=== PATIENT | female | born 1990 | race Caucasian/White ===

== ENCOUNTER 2018-04-28 11:01 | Inpatient (IN) | payer OTHER ==
[2018-04-28] MEDS ORDERED: LORazepam 2 MG/ML INJ IVP ONE ×5 (12:33→16:02)
[2018-04-28] MEDS ORDERED: NS 1,000 ML IV ONE (12:33)
--- NOTE | 2018-04-28 12:37 | EDPHY ---
H & P Stated Complaint: Hallucinations, increased shakes, possible withdrawel from ETOH - Personal History LMP (Females 10-55): Unknown Current Tetanus Diphtheria and Acellular Pertussis (TDAP): Yes Tetanus Vaccine Date: within 10 yrs - Medical/Surgical History Hx Asthma: No Hx Chronic Respiratory Disease: No Hx Diabetes: No Hx Cardiac Disease: No Hx Renal Disease: No Hx Cirrhosis: No Hx Alcoholism: Yes Hx HIV/AIDS: No Hx Splenectomy or Spleen Trauma: No Other PMH: abd surg. ETOH - Social History Smoking Status: Never smoked <Rocael Matthews Sweetie - Last Filed: 04/29/18 06:44> <Jeramie Salinas - Last Filed: 04/29/18 12:37> Time Seen by Provider: 04/28/18 12:26 HPI/ROS: CHIEF COMPLAINT: Anxiety, shaking, possible alcohol withdrawal HISTORY OF PRESENT ILLNESS: 27-year-old female history of heavy daily alcohol use, history of anxiety, last drink of alcohol 2.5 days ago, has been experiencing tremor, hallucination which developed in the past 24 hr. No suicidal or homicidal ideation. The audio hallucinations are "repeating words" . No seizure. No polysubstance abuse. No trauma. No fever or chills. No malaise. REVIEW OF SYSTEMS: A ten point review of systems was performed and is negative with the exception of the items mentioned in the HPI PAST MEDICAL & SURGICAL HISTORY: Alcoholism. Anxiety. SOCIAL HISTORY: Positive for heavy daily alcohol use, last drink of alcohol 2.5 days ago . Works for [employer]. PHYSICAL EXAM (Prior to examination, patient consented to physical exam, hands were washed and my usual and customary physical exam procedures followed) 1) GENERAL: Well-developed, well-nourished, alert and oriented. Shakes my hand , smiling, tremulous, appears anxious 2) HEAD: Normocephalic, atraumatic 3) HEENT: Pupils equal, round, reactive to light bilaterally. Sclera anicteric. Nasopharynx, oropharynx, clear, no lesions. No trauma or laceration. 4) NECK: Full range of motion, no meningeal signs. 5) LUNGS: Clear auscultation bilaterally, no wheezes, no rhonchi, no retractions. 6) HEART: Regular rate and rhythm, no murmur, no heave, no gallop. 7) ABDOMEN: No guarding, no rebound, no focal tenderness, negative McBurney's, negative Johnson's, negative Rovsing's, negative peritoneal sign], 8) MUSCULOSKELETAL: Moving all extremities, no focal areas of tenderness, no obvious trauma. No peripheral edema or discoloration. 9) BACK: No CVA tenderness, no midline vertebral tenderness, no fluctuance, no step-off, no obvious trauma, no visual or palpable abnormality. 10) SKIN: No rash, no petechiae. 11) Psychiatric: Patient is oriented X 3, there is no agitation. Appears anxious. She is tremulous. Answering questions appropriately. 12) NEURO: Awake, alert, and oriented to person, place and time. Answers questions appropriately. There were no obvious focal neurologic abnormalities. Normal steady gait. Upper and lower extremities bilaterally with strength 5 / 5, reflexes 2+. DIFFERENTIAL DIAGNOSIS: In no particular include but limited to acute alcohol withdrawal, alcoholic hallucinosis, hepatic encephalopathy, delirium tremens (Rocael Matthews) Constitutional: Initial Vital Signs Temperature (C) 36.6 C 04/28/18 11:05 Heart Rate 108 H 04/28/18 11:05 Respiratory Rate 20 04/28/18 11:05 Blood Pressure 148/95 H 04/28/18 11:05 O2 Sat (%) 98 04/28/18 11:05 O2 Delivery Mode Room Air Allergies/Adverse Reactions: No Known Allergies Allergy (Unverified 11/12/15 15:34) Home Medications: Medication Instructions Recorded ARIPiprazole [Abilify 2 mg (*)] 2 mg PO DAILY 04/28/18 Escitalopram Oxalate [Lexapro] 20 mg PO DAILY 04/28/18 QUEtiapine FUMARATE [Seroquel 50 50 mg PO DAILY 04/28/18 mg (*)] clonazePAM [Klonopin (*)] 0.5 mg PO DAILY 04/28/18 Medical Decision Making <Rocael Matthews - Last Filed: 04/29/18 06:44> Consult/Admit Bed Type: [place] [id number] <Jeramie Salinas - Last Filed: 04/29/18 12:37> ED Course/Re-evaluation: 12:36 p.m.: Will check laboratory studies , administer IV benzodiazepine and re -evaluate. [facility] she feels better from the emergency department. I do not think she meets criteria for an M1 hold at this time. Doubt DTs at this time 1:54 p.m.: Re-evaluation. She remains tremulous. She has received total 4 mg of IV Ativan. I do not think that discharge to the [facility] is appropriate given her current response to benzodiazepines. Will administer 2 further mg of IV Ativan and plan on admission to the ICU, initiate precedex drip. Patient also seen and examined by secondary supervising physician Dr Jeramie Salinas in ER. (Rocael Matthews) Other Provider: PHYSICIAN DOCUMENTATION: The patient was evaluated and managed by the Physician Manager Employment and myself. I have reviewed the chart and agree with the findings and plan of care as documented. In addition, I examined the patient myself at 1326. History confirmed as no alcohol for a couple days, very tremulous. Physical findings as follows: Patient is alert and answer questions appropriately for me. She is a ambulatory and does not have truncal ataxia but is very tremulous. Additional 2 mg IV Ativan ordered, the clinical picture is consistent with alcohol withdrawal. 1558: Patient is continuing to receive IV Ativan boluses on Precedex drip and still tremulous and appears confused at this time. On admission, on precedex drip, calmer. Critical care time spent by me, Dr. Salinas, exclusively with the care of this patient was 30 minutes, exclusive of PA or INTERNIST MEDICAL DOCTOR MD time and exclusive of separate procedures. The organ system at risk was neurologic and I ordered multiple doses of IV Ativan, serial exams, IV precedex drip to stabilize the patient and prevent worsening of the patient's condition. I am the secondary supervising physician. (Jeramie Salinas) - Data Points Laboratory Results: Laboratory Results 04/28/18 12:55 04/28/18 12:55 Medications Given: Folic Acid (Folic Acid) 1 mg PO DAILY JIMMY Stop: 10/26/18 08:59 Last Admin: 04/29/18 09:12 Dose: 1 mg Thiamine HCl 500 mg/ Sodium (Chloride) 105 mls @ 210 mls/hr IV DAILY JIMMY Stop: 05/02/18 08:59 Last Admin: 04/29/18 09:25 Dose: 105 mls Lorazepam (Ativan Injection) 0 mg IVP Q1H PRN; Protocol PRN Reason: Alcohol Withdrawal w/IV access Stop: 10/25/18 15:11 Last Admin: 04/29/18 09:12 Dose: 2 mg Multivitamins (Tab-A-Basil) 1 each PO DAILY JIMMY Stop: 10/26/18 08:59 Last Admin: 04/29/18 09:12 Dose: 1 each Discontinued Medications Folic Acid (Folic Acid) 1 mg PO EDNOW ONE Stop: 04/28/18 13:56 Last Admin: 04/28/18 14:07 Dose: 1 mg Sodium Chloride (Ns) 1,000 mls @ 0 mls/hr IV ONCE ONE PRN Reason: Wide Open Stop: 04/28/18 12:34 Last Admin: 04/28/18 12:52 Dose: 1,000 mls Dexmedetomidine HCl 400 mcg/ (Sodium Chloride) 104 mls @ 0 mls/hr IV CONT JIMMY; Titrate PRN Reason: Protocol Stop: 10/25/18 14:29 Last Admin: 04/28/18 14:40 Dose: 104 mls Potassium Chloride 20 meq/ (Sodium Chloride) 1,000 mls @ 100 mls/hr IV CONT JIMMY Stop: 10/25/18 15:29 Last Admin: 04/29/18 09:25 Dose: 1,000 mls Potassium Chloride (Potassium Cl 10 Meq (Premix)) 100 mls @ 100 mls/hr IV Q1H JIMMY Stop: 04/29/18 00:29 Last Admin: 04/29/18 00:52 Dose: 100 mls Dexmedetomidine/Sodium Chloride (Precedex 4 Mcg/Ml 100 Ml (Premix)) 100 mls @ 0 mls/hr IV CONT JIMMY; Titrate PRN Reason: Protocol Stop: 10/25/18 14:29 Last Admin: 04/28/18 23:45 Dose: 100 mls Potassium Chloride (Potassium Cl 10 Meq (Premix)) 100 mls @ 100 mls/hr IV Q1H JIMMY Stop: 04/29/18 11:29 Last Admin: 04/29/18 11:47 Dose: 100 mls Magnesium Sulfate (Magnesium Sulf 2 Gm (Premix)) 50 mls @ 50 mls/hr IV ONCE ONE Stop: 04/29/18 09:02 Last Admin: 04/29/18 09:13 Dose: 50 mls Lorazepam (Ativan Injection) 2 mg IVP EDNOW ONE Stop: 04/28/18 12:34 Last Admin: 04/28/18 12:53 Dose: 2 mg Lorazepam (Ativan Injection) 2 mg IVP EDNOW ONE Stop: 04/28/18 13:29 Last Admin: 04/28/18 13:37 Dose: 2 mg Lorazepam (Ativan Injection) 2 mg IVP EDNOW ONE Stop: 04/28/18 14:00 Last Admin: 04/28/18 14:13 Dose: 2 mg Lorazepam (Ativan Injection) 2 mg IVP EDNOW ONE Stop: 04/28/18 14:00 Last Admin: 04/28/18 15:16 Dose: Not Given Lorazepam (Ativan Injection) 2 mg IVP Q6HRS JIMMY Stop: 05/02/18 17:59 Last Admin: 04/29/18 05:24 Dose: 2 mg Lorazepam (Ativan Injection) 2 mg IVP ONCE ONE Stop: 04/28/18 16:03 Last Admin: 04/28/18 16:06 Dose: 2 mg Thiamine HCl (Vitamin B-1) 100 mg PO EDNOW ONE Stop: 04/28/18 13:56 Last Admin: 04/28/18 14:13 Dose: 100 mg Departure <Rocael Matthews - Last Filed: 04/29/18 06:44> <Jeramie Salinas - Last Filed: 04/29/18 12:37> - Departure Disposition: [facility] Clinical Impression: Alcohol withdrawal Qualifiers: Complication of substance-induced condition: with perceptual disturbance Qualified Code(s): F10.232 - Alcohol dependence with withdrawal with perceptual disturbance Condition: Serious
[2018-04-28] MEDS ORDERED: THIAMINE HCL 100 MG TAB PO ONE (13:55)
[2018-04-28] MEDS ORDERED: FOLIC ACID 1 MG TAB PO ONE (13:55)
[2018-04-28 14:18] LABS: CREATINE KINASE 154 IU/L (0-156)
[2018-04-28 14:29] LABS: PLATELET COUNT 78 10^3/uL (150-400)
[2018-04-28] MEDS ORDERED: DEXMEDETOMIDINE HCL 400 MCG in NS 100 ML IV SCH (14:30)
[2018-04-28] MEDS ORDERED: FLUMAZENIL 0.5 MG/5 ML MDV IVP PRN (15:12)
[2018-04-28] MEDS ORDERED: PROTOCOL MAGNESIUM 1 DOSE IV PRN (15:14)
[2018-04-28] MEDS ORDERED: PROTOCOL POTASSIUM 1 DOSE MISC PRN ×2 (15:14)
[2018-04-28] MEDS ORDERED: ACETAMINOPHEN 325 MG TAB PO PRN (15:16)
--- NOTE | 2018-04-28 15:37 | PDGENHP ---
History and Physical - Chief Complaint hallucinations - History of Present Illness 27-year-old female history of heavy daily alcohol use, history of anxiety, last drink of alcohol 2.5 days ago, has been experiencing tremor, hallucination which developed in the past 24 hr. No suicidal homicidal ideation. The audio hallucinations are "repeating words". No seizure. No polysubstance abuse. No trauma. She has a hx of seizures. She is awake but is confused. History is obtained from d/w the ED nurse as well as the medical record. Ethyl Alcohol level is less than 10 She has received a total of 8mg of Ativan A Precedex drip has been started in the E.D. Denies active pain. no seizure activity ROS: per above or unable to obtain PMHx: Alcoholism. Anxiety. Pancreatitis SOCIAL HISTORY: Positive for heavy daily alcohol use, last drink of alcohol 2.5 days ago FMHx: unable to obtain History Information - Allergies/Home Medication List Allergies/Adverse Reactions: No Known Allergies Allergy (Unverified 11/12/15 15:34) Home Medications: ARIPiprazole [Abilify 2 mg (*)] 2 mg PO DAILY 04/28/18 [Last Taken Unknown] Escitalopram Oxalate [Lexapro] 20 mg PO DAILY 04/28/18 [Last Taken Unknown] QUEtiapine FUMARATE [Seroquel 50 mg (*)] 50 mg PO DAILY 04/28/18 [Last Taken Unknown] clonazePAM [Klonopin (*)] 0.5 mg PO DAILY 04/28/18 [Last Taken Unknown] I have personally reviewed and updated: medical history, social history - Social History Smoking Status: Never smoked Review of Systems Review of Systems: ROS: 10pt was reviewed & negative except for what was stated in HPI & below Physical Exam Physical Exam: Temp Pulse Resp BP Pulse Ox 36.4 C 98 23 H 136/106 H 91 L 04/28/18 14:54 04/28/18 15:14 04/28/18 15:14 04/28/18 15:14 04/28/18 15:14 Constitutional: no apparent distress Eyes: PERRL, EOMI Ears, Nose, Mouth, Throat: moist mucous membranes Cardiovascular: regular rate and rhythym Respiratory: no respiratory distress, no rales or rhonchi Gastrointestinal: normoactive bowel sounds, soft, non-tender abdomen Skin: warm Neurologic: No AAOx3 Psychiatric: encephalopathic Lymph, Heme, Immunologic: No petechiae Lab Data & Imaging Review 04/28/18 12:55 04/28/18 12:55 WBC 3.92 10^3/uL (3.80-9.50) 04/28/18 12:55 RBC 3.98 10^6/uL (4.18-5.33) L 04/28/18 12:55 Hgb 14.3 g/dL (12.6-16.3) 04/28/18 12:55 Hct 40.5 % (38.0-47.0) 04/28/18 12:55 MCV 101.8 fL (81.5-99.8) H 04/28/18 12:55 MCH 35.9 pg (27.9-34.1) H 04/28/18 12:55 MCHC 35.3 g/dL (32.4-36.7) 04/28/18 12:55 RDW 11.4 % (11.5-15.2) L 04/28/18 12:55 Plt Count 78 10^3/uL (150-400) L 04/28/18 12:55 MPV 10.6 fL (8.7-11.7) 04/28/18 12:55 Neut % (Auto) 72.7 % (39.3-74.2) 04/28/18 12:55 Lymph % (Auto) 14.0 % (15.0-45.0) L 04/28/18 12:55 Marshall % (Auto) 11.7 % (4.5-13.0) 04/28/18 12:55 Eos % (Auto) 0.5 % (0.6-7.6) L 04/28/18 12:55 Baso % (Auto) 0.8 % (0.3-1.7) 04/28/18 12:55 Nucleat RBC Rel Count 0.0 % (0.0-0.2) 04/28/18 12:55 Absolute Neuts (auto) 2.85 10^3/uL (1.70-6.50) 04/28/18 12:55 Absolute Lymphs (auto) 0.55 10^3/uL (1.00-3.00) L 04/28/18 12:55 Absolute Monos (auto) 0.46 10^3/uL (0.30-0.80) 04/28/18 12:55 Absolute Eos (auto) 0.02 10^3/uL (0.03-0.40) L 04/28/18 12:55 Absolute Basos (auto) 0.03 10^3/uL (0.02-0.10) 04/28/18 12:55 Absolute Nucleated RBC 0.00 10^3/uL (0-0.01) 04/28/18 12:55 Immature Gran % 0.3 % (0.0-1.1) 04/28/18 12:55 Immature Gran # 0.01 10^3/uL (0.00-0.10) 04/28/18 12:55 Sodium 141 mEq/L (135-145) 04/28/18 12:55 Potassium 3.3 mEq/L (3.3-5.0) 04/28/18 12:55 Chloride 102 mEq/L (97-110) 04/28/18 12:55 Carbon Dioxide 22 mEq/l (22-31) 04/28/18 12:55 Anion Gap 17 mEq/L (8-16) H 04/28/18 12:55 BUN 10 mg/dL (7-23) 04/28/18 12:55 Creatinine 0.6 mg/dL (0.6-1.0) 04/28/18 12:55 Estimated GFR > 60 04/28/18 12:55 Glucose 111 mg/dL (70-100) H 04/28/18 12:55 Calcium 9.8 mg/dL (8.5-10.4) 04/28/18 12:55 Magnesium 1.6 mg/dL (1.6-2.3) 04/28/18 12:55 Total Bilirubin 1.6 mg/dL (0.1-1.4) H 04/28/18 12:55 Conjugated Bilirubin 0.5 mg/dL (0.0-0.5) 04/28/18 12:55 Unconjugated Bilirubin 1.1 mg/dL (0.0-1.1) 04/28/18 12:55 AST 137 IU/L (14-46) H 04/28/18 12:55 ALT 77 IU/L (9-52) H 04/28/18 12:55 Alkaline Phosphatase 89 IU/L (38-126) 04/28/18 12:55 Creatine Kinase 154 IU/L (0-156) 04/28/18 12:55 Total Protein 8.6 g/dL (6.3-8.2) H 04/28/18 12:55 Albumin 5.1 g/dL (3.5-5.0) H 04/28/18 12:55 Beta HCG, Qual NEGATIVE 04/28/18 12:55 Ethyl Alcohol < 10 mg/dL (0-10) 04/28/18 12:55 Assessment & Plan Assessment: #Acute ETOH WD #Acute Encephalopathy #Hallucinations #Chronic ETOH Plan: Admit to Step Down cont with CIWA Schedule additional Ativan Cont Precedex Check Magnesium IVF SCD's Full Code total critical care time is 45 minutes
[2018-04-28] MEDS: LORazepam 2 MG/ML INJ IVP SCH (20:15)
[2018-04-28] MEDS ORDERED: DEXMEDETOMIDINE IN 0.9 % NACL 100 ML IV SCH (21:30)
[2018-04-28] MEDS: LORazepam 2 MG/ML INJ IVP PRN (22:16)
[2018-04-28] MEDS: POTASSIUM Cl (KCl) 20 MEQ in 1/2 NS 1,000 ML IV SCH (22:34)
[2018-04-28] MEDS: POTASSIUM Cl (KCl) 100 ML IV SCH ×2 (22:34→23:45)
[2018-04-29] MEDS: POTASSIUM Cl (KCl) 100 ML IV SCH ×4 (00:52→11:47)
[2018-04-29] MEDS: LORazepam 2 MG/ML INJ IVP SCH ×2 (00:53→05:24)
[2018-04-29] MEDS: LORazepam 2 MG/ML INJ IVP PRN ×7 (03:50→20:14)
[2018-04-29 04:41] LABS: PLATELET COUNT 63 10^3/uL (150-400)
[2018-04-29] MEDS ORDERED: MAGNESIUM SULF 2 GM/WATER 50 ML IV ONE (08:03)
[2018-04-29] MEDS: FOLIC ACID 1 MG TAB PO SCH (09:12)
[2018-04-29] MEDS: MULTIVITAMINS 1 EACH TAB PO SCH (09:12)
[2018-04-29] MEDS: THIAMINE HCL 500 MG in NS 100 ML IV SCH (09:25)
[2018-04-29] MEDS: POTASSIUM Cl (KCl) 20 MEQ in 1/2 NS 1,000 ML IV SCH (09:25)
--- NOTE | 2018-04-29 09:39 | PDMN ---
Medical Necessity Medical necessity: Pt meets IP criteria per & SILVIA CCC-035 Alcohol Withdrawal w/acute encephalopathy, tremors & hallucinations; admit to Step-Down ICU; requiring IV Precedex & Ativan, IVFs & CIWA protocol; hx alcoholism & seizures
--- NOTE | 2018-04-29 10:01 | ASMTCASEMG ---
Living Arrangements What is your living Answers: With Spouse arrangement? Who do you live with? Type Of Residence What kind of residence do Answers: House you live in? Discharge Plan Comments Coordination Status Comments Notes: Patient is a 27yo female with a hx of heavy daily alcohol use and a hx of anxiety who was admitted for ETOH withdrawal, acute encephalopathy, hallucinations, and chronic Etoh abuse. PT/MANAGER OF HEALTH have been ordered. CAGE needed when patient is able. D/C plan TBD. CM will follow. Date Signed: 04/29/2018 10:01 AM Electronically Signed By:Uyen Gates LCSW
[2018-04-29] MEDS ORDERED: chlordiazePOXIDE 25 MG CAP PO SCH (13:00)
--- NOTE | 2018-04-29 14:27 | HOSPPROG ---
Hospitalist Progress Note Assessment/Plan: 27 yo female admitted to the Step down unit due to ETOH intoxication requiring Precedex and scheduled Benzo's #Acute ETOH WD #Acute Encephalopathy #Hallucinations #Chronic ETOH #Hypomagnesemia Plan: -Off Precedex -cont in step down, if better today, consider transfer to med floor -replace magnesium -Schedule Librium -Cont CIWA, Ativan -stop scheduled Ativan -Regular diet -SCD's -Full Code total critical care time is 32 mins Subjective: feeling better. CIWA scores are decreasing. tolerating a diet. Objective: Vital Signs Temp Pulse Resp BP Pulse Ox 37.0 C 125 H 18 114/89 H 97 04/29/18 11:30 04/29/18 11:30 04/29/18 11:30 04/29/18 11:30 04/29/18 11:30 Laboratory Results 04/29/18 04:08 04/29/18 04:08 04/28/18 04/29/18 04/30/18 05:59 05:59 05:59 Intake Total 2786.7 Balance 2786.7 - Physical Exam Constitutional: no apparent distress Eyes: PERRL, EOMI Ears, Nose, Mouth, Throat: moist mucous membranes, hearing normal Cardiovascular: regular rate and rhythym, No edema Respiratory: no respiratory distress, No rhonchi Gastrointestinal: normoactive bowel sounds, soft, non-tender abdomen Skin: warm Neurologic: AAOx3, other (bilateral hand tremor) Psychiatric: anxious, No not encephalopathic Lymph, Heme, Immunologic: No petechiae ICD10 Worksheet Patient Problems: Problems Problem Status Onset Alcohol withdrawal Acute
[2018-04-29] MEDS ORDERED: chlordiazePOXIDE 25 MG CAP PO ONE (15:40)
[2018-04-29] MEDS: chlordiazePOXIDE 25 MG CAP PO SCH ×2 (16:07→22:17)
--- NOTE | 2018-04-29 16:50 | GCON ---
[f rep st] CONSULTATION CRITICAL CARE CONSULTATION DATE OF CONSULTATION: 04/29/2018 HISTORY OF PRESENT ILLNESS: This is a 27-year-old female with a history of heavy alcohol use, with a history of alcohol seizures in the past, who came to the emergency department yesterday with tremor and hallucinations that developed in the last 24 hours. She said her last drink of alcohol was about 2-1/2 days prior to that. She had no seizure activity that she was aware of at this time, but was s omewhat confused. She was admitted then to the intensive care unit on the CIWA protocol, and a Prece dex drip was started in the emergency department. At the time my evaluation came around the next mor lissy, she was much clearer. Her Precedex was on 0.2. She denied any further hallucinations but did have some mild tremor at that time. REVIEW OF SYSTEMS: Otherwise negative. PAST MEDICAL HISTORY: Includes alcoholism, pancreatitis, and anxiety in the past. PAST SURGICAL HISTORY: None. SOCIAL HISTORY: She is a nonsmoker. FAMILY HISTORY: Noncontributory. MEDICATIONS: At this time, in [employer]. PHYSICAL EXAM: VITAL SIGNS: She had a blood pressure of 118/87, heart rate 84, respirations 14, oxy gen saturation 94% on room air. GENERAL: She was easily aroused from sleep, in no apparent distress and able to speak in full sentences without using accessory muscles for breathing. HEENT: Pupils e qually round and reactive to light, nonicteric and noninjected. Mucous membranes are moist, without erythema or exudate. NECK: Supple, without adenopathy or jugular vein distention. LUNGS: Breath s ounds were clear to auscultation bilaterally, without wheezes, rubs, or rales. HEART: Regular rate and rhythm, without murmurs, rubs, or gallops. ABDOMEN: Soft, nontender, nondistended, without hepa tosplenomegaly. EXTREMITIES: No clubbing, cyanosis, or edema. 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 She did appear to have occasional tremor. SKIN: Warm and dry , without evidence of rash. OBJECTIVE DATA: Includes a white count of 3.14, hematocrit of 34, which is down from 40 when she arr ived. Platelets were 63, down from 78. Basic metabolic panel was essentially normal, though she had a bicarb of 20. Her BUN and creatinine were normal. Her LFTs yesterday showed an AST of 137, ALT o f 77. Alcohol level was undetectable. ASSESSMENT/PLAN: 1. Alcohol withdrawal. She appears to be having withdrawal symptoms but is quite mild at this time. I would discontinue her Precedex and change her to p.r.n. Librium and monitor her for any symptoms that should get worse. 2. Alcoholic hepatitis. I think her discriminant function is normal. I do not think that steroids are indicated at this time. Going to simply recheck her LFTs in the near future. 3. Thrombocytopenia. This is likely chronic for her related to alcohol consumption, though in 2016, her platelets were 208, although I am uncertain of the circumstances at that time. I would simply follow these for now. They are certainly not a level that would require transfusion, and esau kirkr that for changes. We may consider withholding heparin products to minimize confounding variable s. /[id number]/MODL
[2018-04-30] MEDS: LORazepam 2 MG/ML INJ IVP PRN (02:53)
[2018-04-30 07:23] VITALS: BP 114/84
[2018-04-30] MEDS: MULTIVITAMINS 1 EACH TAB PO SCH (08:15)
[2018-04-30] MEDS: chlordiazePOXIDE 25 MG CAP PO SCH (08:15)
[2018-04-30] MEDS: THIAMINE HCL 500 MG in NS 100 ML IV SCH (08:15)
[2018-04-30] MEDS: FOLIC ACID 1 MG TAB PO SCH (08:15)
[2018-04-30] MEDS ORDERED: POTASSIUM CL 10 MEQ TAB PO ONE (08:49)
--- NOTE | 2018-04-30 08:53 | PDINTPN ---
Coordinator Integrated Marketing Progress Note Assessment/Plan: Assessment/plan: * Alcoholism * Acute alcohol withdrawals-CIWA is low * History of pancreatitis * Alcoholic hepatitis * Thrombocytopenia * Tremors Subjective: Sitting up in bed. Comfortable. Wishes to be discharged home. Objective: Vital Signs Temp Pulse Resp BP Pulse Ox 37.3 C 111 H 19 114/84 H 96 04/30/18 07:23 04/30/18 07:23 04/30/18 07:23 04/30/18 07:23 04/30/18 07:23 Laboratory Results 04/29/18 04:08 04/30/18 06:30 04/29/18 04/30/18 05/01/18 05:59 05:59 05:59 Intake Total 2786.7 1312 Output Total 4 Balance 2786.7 1308 - Time Spent With Patient Time Spent With Patient: 25 min of time spent with patient, over 1/2 involved with coordination of care or counseling Case discussed with nursing Physical Exam - Physical Exam General Appearance: alert, no apparent distress EENT: PERRL/EOMI, normal ENT inspection Neck: non-tender, full range of motion, supple, normal inspection Respiratory: chest non-tender, lungs clear, normal breath sounds Cardiac/Chest: normal peripheral pulses, regular rate, rhythm Peripheral Pulses: 2+: carotid (R), carotid (L), femoral (R), femoral (L), dorsalis-pedis (R), dorsalis-pedis (L) Abdomen: normal bowel sounds, non-tender, soft Pelvic Exam: deferred Rectal: deferred Skin: normal color, warm/dry Extremities: normal range of motion, non-tender, normal inspection, normal capillary refill Neuro/Psych: other (Fine tremor) ICD10 Worksheet Patient Problems: Problems Problem Status Onset Alcohol withdrawal Acute
--- NOTE | 2018-04-30 11:37 | ASMTCMCOM ---
CM Note CM Note Notes: Met with patient, completed CAGE and discussed resources for her. Patient was given resources for both anxiety and alcohol. She was encouraged to make an appointment with [facility] to get started with a psychiatrist who can help her with anxiety. Patient would like to go home today but is having abnormal heart rhythms and some other symptoms she will have to medically clear from first. Patient reports she is but her has been out of town on business. He is supposed to be returning this evening. CM will follow. Date Signed: 04/30/2018 11:36 AM Electronically Signed By:Uyen Gates LCSW
--- NOTE | 2018-04-30 11:48 | ASMTCAGE ---
CAGE Do you feel you ought to Answers: Yes cut down on your drinking or drug use? Do people annoy you by Answers: No criticizing your drinking or drug use? Do you feel guilty about Answers: Yes your drinking or drug use? Do you drink or use drugs Answers: No first thing in the morning (Eye Staffing Manager)? Additional Comments Patient is in mild denial regarding ETOH use. Patient has been diagnosed with anxiety which she identifies as a trigger for drinking. She plans [facility] to get started with a psychiatrist again. Date Signed: 04/30/2018 11:47 AM Electronically Signed By:Uyen Gates LCSW
[2018-04-30] MEDS ORDERED: ESCITALOPRAM OXALATE 10 MG TAB PO SCH (12:00)
[2018-04-30] MEDS ORDERED: ARIPiprazole 2 MG TAB PO SCH (12:00)
--- NOTE | 2018-04-30 13:30 | PDDCSUM ---
Discharge Summary Discharge Summary: 27 yo female admitted to the Step down unit due to ETOH intoxication requiring Precedex and scheduled Benzo's. She was managed in the step down unit. She was weaned off Precedex but was still requiring large amounts of Benzo's. She was still with symptomatic ETOH WD. She was not encephalopathic. She had no further Hallucinations. Unfortunately, she left AMA despite multiple attempts to convince her to stay. No Benzo medications were provided. We attempted to call family to inform them but they did not pharmacy picking technician. DDX: #Acute ETOH WD #Acute Encephalopathy #Hallucinations #Chronic ETOH #Hypomagnesemia Exam: tremulous alert awake no hallucinations rrr cta b total time spent on admission is 35 mins
[2018-05-01] MEDS ORDERED: THIAMINE HCL 100 MG TAB PO SCH (15:12)
== END 2018-04-30 12:25 | disposition left against medical advice (07) | DRG 894 ==
LOC: F2N 21:00
PROVIDERS: ADMIT Family Medicine; ATTEND Family Medicine
DX: F10.232 Alcohol dependence with withdrawal with perceptual disturbance (principal); G31.2 Degeneration of nervous system due to alcohol; E83.42 Hypomagnesemia; D69.6 Thrombocytopenia, unspecified; K70.10 Alcoholic hepatitis without ascites; F41.9 Anxiety disorder, unspecified; R56.9 Unspecified convulsions
CPT/HCPCS: 96365; 97116-GP; 97161-GP; G0480; J2060; J3411; J3475; J3480